=== PATIENT | male | born 1985 | race Caucasian/White ===

== ENCOUNTER 2017-06-22 15:57 | Emergency (ER) | payer MEDICAID ==
[2017-06-22 16:01] VITALS: O2SAT 98
--- NOTE | 2017-06-22 16:25 | EDPHY ---
H & P Time Seen by Provider: 06/22/17 16:15 HPI/ROS: CHIEF COMPLAINT: Right shoulder pain HISTORY OF PRESENT ILLNESS: Patient had shingles 1 year ago and was treated with a cream and tramadol. No antivirals and no steroids. But 3 days ago started having pain in his right side of his neck and shoulder similar symptoms to when he had his shingles. Pain is mild but he wanted to come in and not wait too long because when he was seen a year ago he was told he was too late for medication therapy. REVIEW OF SYSTEMS: No injury or fever or skin rash PAST MEDICAL HISTORY: Shingles as above Social history: Increased stress lately General Appearance: Alert and conversant, cooperative. Patient has a pimple left of the midline on the scapular area but nothing on the right. No vesicles and no redness over the right shoulder. No swelling or fluctuance, normal range of motion of right shoulder elbow and wrist. Normal strength and sensation in both upper extremities. Slight muscular tenderness in the right trapezius. Normal motor sensory and radial pulse in the right hand. Emergency Department course/MDM: Possibility of post herpetic neuralgia is considered, or muscular. Doubt fracture or septic joint, doubt rotator cuff or labral problem as he has good resistance to abduction and abduction and rotation. Consult phone with Neurology. [id number]: Discussed with Neurology Dr. martinez, plan to wait and see if a rash develops, if the patient continues to have pain consider oral gabapentin and he will see the patient in the clinic. Smoking Status: Never smoked Constitutional: Initial Vital Signs Temperature (C) 36.5 C 06/22/17 15:59 Heart Rate 62 06/22/17 15:59 Respiratory Rate 16 06/22/17 15:59 Blood Pressure 136/79 H 06/22/17 15:59 O2 Sat (%) 98 06/22/17 15:59 O2 Delivery Mode Room Air Allergies/Adverse Reactions: No Known Allergies Allergy (Unverified 06/22/17 15:59) Home Medications: Medication Instructions Recorded NK [No Known Home Meds] 06/22/17 MDM/Departure - Depart Disposition: Home, Routine, Self-Care Clinical Impression: Right shoulder pain Qualifiers: Chronicity: acute Qualified Code(s): M25.511 - Pain in right shoulder Condition: Good Instructions: Shoulder Pain (ED) Additional Instructions: Please return for evaluation if you have worsening or severe pain, trouble moving the shoulder, or any skin rash or fever. Referrals: Mark Miranda MD [Medical Doctor] - As per Instructions Aniceto Martinez DO [Medical Doctor] - As per Instructions (Please follow-up neurology or Wednesday this week if you're still having pain, they will consider treating you with oral gabapentin if it appears this is recurrent pain from shingles.)
[2017-06-22 16:30] VITALS: TEMP 98.1
[2017-06-22 16:45] VITALS: BP 118/83; PULSE 56; RESP 16
== END 2017-06-22 16:45 | disposition home or self-care (01) ==
DX: M25.511 Pain in right shoulder (principal)

== ENCOUNTER 2017-06-26 08:49 | Emergency (ER) | payer MEDICAID ==
[2017-06-26 08:57] VITALS: BP 128/72; PULSE 58; RESP 16; TEMP 97.5; O2SAT 97
--- NOTE | 2017-06-26 09:20 | EDPHY ---
H & P Time Seen by Provider: 06/26/17 08:59 HPI/ROS: CHIEF COMPLAINT: Itching tender scalp lesions HISTORY OF PRESENT ILLNESS: 31-year-old immunocompetent male with prior history of zoster in the right shoulder region was seen the ER a few days ago for complaints of pain at same location, this morning awoke with new onset vesicles cells, concerned over zoster. No ocular or auricular complaints. No facial lesions. No facial droop. No headache. No vomiting. PHYSICAL EXAM (Prior to examination, patient consented to physical exam, hands were washed and my usual and customary physical exam procedures followed) 1) GENERAL: Well-developed, well-nourished, alert and oriented. Appears to be in no acute distress. 2) HEAD: Normocephalic 3) HEENT: sclera anicteric 4) LUNGS: Breathing comfortably. 5) SKIN: The patient's right scalp followed dermatomal distribution he has multiple vesicular lesions consistent with zoster. He has no involvement of the auricle, EAC is clear with no evidence of [place]. No facial lesions. No Facial droop. Smoking Status: Never smoked Constitutional: Initial Vital Signs Temperature (C) 36.4 C 06/26/17 08:53 Heart Rate 58 L 06/26/17 08:53 Respiratory Rate 16 06/26/17 08:53 Blood Pressure 128/72 H 06/26/17 08:53 O2 Sat (%) 97 06/26/17 08:53 O2 Delivery Mode Room Air Allergies/Adverse Reactions: No Known Allergies Allergy (Verified 06/26/17 08:53) Home Medications: Medication Instructions Recorded Acyclovir 800 mg PO 5XD #35 tab 06/26/17 MDM/Departure - MDM ED Course/Re-evaluation: I think the patient's symptoms are secondary to acute zoster with no ophthalmologic complaints/involvement, no facial involvement, no ear involvement He will be started on acyclovir. Usual and customary zoster precautions provided. Care of patient under supervision of secondary supervising physician Dr Nam . - Depart Disposition: Home, Routine, Self-Care Clinical Impression: Zoster Qualifiers: Herpes zoster complications: without complications Qualified Code(s): B02.9 - Zoster without complications Condition: Good Instructions: Shingles (ED) Additional Instructions: Return to the ER if you develop fevers, headache, facial complaints, eye irritation or any other symptoms that concern you Prescriptions: Acyclovir 800 mg PO 5XD #35 tab Referrals: Ayah Martinez DO [Doctor of Osteopathy] - 2-3 days, call for appt.
== END 2017-06-26 09:29 | disposition home or self-care (01) ==
DX: B02.9 Zoster without complications (principal)

== ENCOUNTER 2018-11-21 14:11 | Emergency (ER) | payer MEDICAID | END 2018-11-21 16:36 | disposition home or self-care (01) ==